=== PATIENT | male | born 1995 | race Caucasian/White ===

== ENCOUNTER 2017-08-14 18:09 | Emergency (ER) | payer MEDICAID ==
[~2017-08-14] VITALS: Ht 177.8 cm; Wt 68.8 kg
[2017-08-14 18:14] VITALS: BP 133/78
[2017-08-14] MEDS ORDERED: LIDOCAINE 1%, 20ML INFIL ONE (18:30)
[2017-08-14] MEDS ORDERED: LIDOCAINE 1%, 10ML ONE (19:03)
[2017-08-14] MEDS ORDERED: DIPH,PERTUSS(ACELL),TET VAC/PF 0.5 ML IM-VACC ONE ×2 (19:30→19:41)
== END 2017-08-14 20:11 | disposition home or self-care (01) ==
LOC: ED 20:00
DX: S61.512A Laceration without foreign body of left wrist, initial encounter (principal); W27.8XXA Contact with other nonpowered hand tool, initial encounter; Y93.89 Activity, other specified; Y92.009 Unspecified place in unspecified non-institutional (private) residence as the place of occurrence of the external cause; Y99.8 Other external cause status
CPT/HCPCS: 12001; 90471; 90715